=== PATIENT | male | born 1960 | race Caucasian/White ===

== ENCOUNTER → 2021-09-03 11:33 | Outpatient (BNVA) | payer SELFPAY | PROVIDERS: Visit Provider Nurse Practitioner Family | DX: Z53.8 Procedure and treatment not carried out for other reasons (principal) | CPT/HCPCS: 84153 ==

== ENCOUNTER → 2021-09-09 09:01 | Outpatient (BNVA) | payer SELFPAY | PROVIDERS: Visit Provider Nurse Practitioner Family | DX: Z53.8 Procedure and treatment not carried out for other reasons (principal) | CPT/HCPCS: 87635 ==

== ENCOUNTER → 2021-10-13 14:36 | Outpatient (BNVA) | payer SELFPAY | PROVIDERS: Visit Provider Nurse Practitioner Family | DX: Z95.0 Presence of cardiac pacemaker (principal) | CPT/HCPCS: 86850; 86900; 86920 ==

== ENCOUNTER → 2021-11-10 08:00 | Outpatient (BNVA) | payer SELFPAY | PROVIDERS: Visit Provider Nurse Practitioner Family | DX: Z95.0 Presence of cardiac pacemaker (principal) | CPT/HCPCS: 87070; 87075; 87086; 87184; 87205 ==

== ENCOUNTER → 2021-11-13 13:00 | Outpatient (BNVA) | payer SELFPAY | PROVIDERS: Visit Provider Nurse Practitioner Family | DX: Z95.0 Presence of cardiac pacemaker (principal) | CPT/HCPCS: 87070; 87176; 87205 ==

== ENCOUNTER → 2022-03-14 10:00 | Outpatient (BNVA) | payer SELFPAY | PROVIDERS: Visit Provider Nurse Practitioner Family | DX: Z95.0 Presence of cardiac pacemaker (principal) | CPT/HCPCS: 87081; 87449; 87491; 87493; 87506; 87591; 87661 ==

== ENCOUNTER → 2022-03-16 08:18 | Outpatient (BNVA) | payer SELFPAY | PROVIDERS: Visit Provider Nurse Practitioner Family | DX: Z95.0 Presence of cardiac pacemaker (principal) | CPT/HCPCS: 87070; 87081; 87086; 87184 ==

== ENCOUNTER → 2022-06-23 11:17 | Outpatient (BNVA) | payer SELFPAY | PROVIDERS: Visit Provider Nurse Practitioner Family | DX: Z95.0 Presence of cardiac pacemaker (principal) | CPT/HCPCS: 87070; 87081; 87086; 87176; 87184; 87205 ==

== ENCOUNTER → 2022-07-02 07:43 | Outpatient (BNVA) | payer SELFPAY | PROVIDERS: Visit Provider Nurse Practitioner Family | DX: Z95.0 Presence of cardiac pacemaker (principal) | CPT/HCPCS: 87184 ==

== ENCOUNTER → 2022-07-21 14:50 | Outpatient (BNVA) | payer SELFPAY | PROVIDERS: Visit Provider Nurse Practitioner Family | DX: Z53.9 Procedure and treatment not carried out, unspecified reason (principal) | CPT/HCPCS: 85025 ==

== ENCOUNTER → 2022-11-07 10:53 | Outpatient (BNVA) | payer SELFPAY | PROVIDERS: Visit Provider Nurse Practitioner Family | DX: Z95.0 Presence of cardiac pacemaker (principal) | CPT/HCPCS: 87070; 87075; 87086; 87184; 87205 ==

== ENCOUNTER → 2022-11-15 16:57 | Outpatient (BNVA) | payer SELFPAY | PROVIDERS: Visit Provider Nurse Practitioner Family | DX: Z95.0 Presence of cardiac pacemaker (principal) | CPT/HCPCS: 87184 ==

== ENCOUNTER → 2023-03-14 14:41 | Outpatient (BNVA) | payer SELFPAY | PROVIDERS: Visit Provider Nurse Practitioner Family | DX: Z95.0 Presence of cardiac pacemaker (principal) | CPT/HCPCS: 87070; 87077; 87081; 87086; 87150; 87184; 87205 ==